=== PATIENT | female | born 1945 | race Caucasian/White ===

== ENCOUNTER 2018-04-27 11:50 | Emergency (ER) | payer OTHER ==
--- NOTE | 2018-04-27 12:17 | EDPHY ---
H & P Time Seen by Provider: 04/27/18 12:16 HPI/ROS: Chief complaint. Fall 2 days ago HPI. 72-year-old female trip and fall 2 days ago. She was walking in the street and tripped over a speed bump. She fell onto her left side striking her ribs. She felt like her ribs shifted. She got home and sat down on the couch and felt that the ribs pop back into place. She did not strike her head. Did not lose consciousness. She has no neck pain. She has diffuse back pain and left chest pain. She also has bruising to her left thumb and an abrasion to her left knee. She has been ambulatory. Her blood pressure is elevated 246/ 111 and I talked to the patient about this and she tells me that she does have a known history of hypertension but cannot take any blood pressure medication and she and her physician treat her blood pressure with magnesium. ROS 10 systems were reviewed and negative with the exception of the elements mentioned in the history of present illness Past Medical/Surgical History: Hypertension and diabetes. Hard of hearing secondary to shingles Social History: Single, nonsmoker, no alcohol Smoking Status: Never smoked Physical Exam: General Appearance: Alert well-developed female mild distress vital signs are stable Eyes: Pupils equal and round no pallor or injection. ENT, no hemotympanum or Kirby sign no dental trauma. No bumps to her head. Respiratory: Diffuse tenderness to left T7 through T9 ribs lateral line. No bruising; breath sounds symmetrical and full Cardiovascular: Regular rate and rhythm. Gastrointestinal: Abdomen is soft and nontender, no masses, bowel sounds normal. Neurological: Awake and alert, sensory and motor exams grossly normal. Skin: Warm and dry, no rashes. Musculoskeletal: Neck is supple and nontender. There is no tenderness to palpation of T, L, S spine. Diffuse tenderness without surface trauma on both sides of the thoracic spine but no T-spine tenderness Extremities symmetrical, full range of motion. Bruising to the pad of the left thumb Psychiatric: Patient is oriented X 3, there is no agitation. Constitutional: Initial Vital Signs Temperature (C) 36.9 C 04/27/18 12:00 Heart Rate 94 04/27/18 12:00 Respiratory Rate 18 04/27/18 12:00 Blood Pressure 245/111 H 04/27/18 12:00 O2 Sat (%) 95 04/27/18 12:00 O2 Delivery Mode Room Air Allergies/Adverse Reactions: all hypertension meds Allergy (Uncoded 04/27/18 12:10) all pain meds inlcuding tylenol and Allergy (Uncoded 04/27/18 12:10) Home Medications: Medication Instructions Recorded Electrolytes 04/27/18 Metformin HCl 04/27/18 Medical Decision Making - Diagnostics Imaging Results: Imaging Impressions Chest X-Ray 04/27/18 12:27 Impression: Negative chest. Chest x-ray reviewed by me shows no evidence of rib fractures or pneumothorax. ED Course/Re-evaluation: Re-evaluation 12:50 p.m.. Patient and I discussed imaging study results, treatment plan including criteria for return importance of follow-up and further evaluation. She expressed understanding and agreement Differential Diagnosis: I considered rib fracture, pneumothorax. There is contusion and ecchymosis to her left thumb without deformity. No evidence of spine injury Patient insist that she is unable to take blood pressure medication and that electrolytes have saved her life. She has an array of electrolyte bottles that she uses to control her blood pressure. She uses this in conjunction with her regular physician for blood pressure management Departure - Departure Disposition: Home, Routine, Self-Care Clinical Impression: Chest wall contusion Qualifiers: Encounter type: initial encounter Laterality: left Qualified Code(s): S20.212A - Contusion of left front wall of thorax, initial encounter Condition: Good Instructions: Contusion in Adults (ED) Additional Instructions: Continue electrolytes for blood pressure control. You're blood pressure is elevated today. Please follow-up with your regular physician for further discussion and management of blood pressure. Heat to your left chest to help with discomfort. Return for worsening symptoms. Recheck in 2-3 days for continuing symptoms Referrals: PALOMA DEL CID [Primary Care Provider] - 5-7 days, call for appt.
[2018-04-27 12:28] VITALS: BP 245/111
== END 2018-04-27 13:02 | disposition home or self-care (01) ==
LOC: CED 11:50
DX: S20.212A Contusion of left front wall of thorax, initial encounter (principal); S60.012A Contusion of left thumb without damage to nail, initial encounter; S80.212A Abrasion, left knee, initial encounter; W01.0XXA Fall on same level from slipping, tripping and stumbling without subsequent striking against object, initial encounter; Y93.01 Activity, walking, marching and hiking; Y92.410 Unspecified street and highway as the place of occurrence of the external cause; Y99.8 Other external cause status; I10 Essential (primary) hypertension; E11.9 Type 2 diabetes mellitus without complications
CPT/HCPCS: 71046-PO